=== PATIENT | female | born 1965 | race Caucasian/White ===

== ENCOUNTER → 2019-02-16 10:34 | Outpatient (CLI) | payer BC, SELFPAY ==
--- NOTE | 2019-02-16 10:39 | CA_ITS ---
PROCEDURE: 2-D M-mode and color Doppler study INDICATIONS FOR THE TEST: Chest pain COPD Heart Murmur Tobacco SmokingX Palpitations Fatigue Syncope Edema HypertensionXDiabetes Mellitus Rheumatic Fever SOB LI Obesity HyperlipidemiaX Family History HD Additional History PAD,CAD,PRE-OP COLONOSCOPY,ABN EKG PATIENT INFORMATION HEIGHT: 64 WEIGHT:164 GENDER: Female B/P:154/80 2-D/M-MODE INTERPRETATION: 2-D MEASUREMENTS OBSERVED VALUES IN CMS Right Ventricular Dimension (RVDd) 2.4 Interventricular Septum (Thickness)(IVsd) .7 Left Ventricular Internal Dimensions(LVIDd) 4.4 Left Ventricular Posterior Wall (Thickness)(LVPWd) .7 Aortic Root 2.5 Aortic Cusp Separation 1.8 Left Atrial Dimensions (LAD) 2.9 2D 1. Left atrium is normal size, left ventricle is normal size, there is no concentric left ventricular hypertrophy, visually estimated ejection fraction 55% with no regional wall motion abnormality. 2. The right atrium and right ventricle are normal size and contractility. 3. The aortic, mitral and tricuspid valve are grossly normal. 4. The pulmonic valve is poorly visualized. 5. No significant pericardial effusion noted. DOPPLER INTERROGATION: Doppler interrogation of the aortic, mitral and tricuspid valvular presence of mild mitral and tricuspid regurgitation, tricuspid regurgitation jet velocity is inadequate for calculation of the right ventricular systolic pressure, diastolic parameters are within normal range. CONCLUSION: 1. Normal left ventricular size, preserved left ventricular systolic function, visually estimated ejection fraction 55% with no regional wall motion abnormality, stomach parameters are within normal range. 2. Mild mitral and tricuspid regurgitation 3. No significant pericardial effusion noted.
== END ==
PROVIDERS: PCP Nurse Practitioner; Visit Provider Nurse Practitioner Family
DX: Z01.818 Encounter for other preprocedural examination (principal); I25.10 Atherosclerotic heart disease of native coronary artery without angina pectoris; R94.31 Abnormal electrocardiogram [ECG] [EKG]; E78.49 Other hyperlipidemia; I11.9 Hypertensive heart disease without heart failure; I73.9 Peripheral vascular disease, unspecified; Z72.0 Tobacco use
CPT/HCPCS: 93306

== ENCOUNTER → 2020-12-06 12:44 | Outpatient (CLI) | payer OTHER, SELFPAY ==
--- NOTE | 2020-12-06 12:45 | US_ITS ---
APPROVED REPORT Exam Type: Ankle to Brachial Index Creative Coordinator: RT Shaggy(R) Indications Claudication: Bilaterally Rest Pain: Bilaterally Risk Factors History of PAD: Hypertension Hyperlipidemia Current Smoker Patient states she has stents in her left leg. Pressures/Indices Right Indices Left Indices Brachial 112.00 mmHg Brachial 104.00 mmHg Low Thigh 102.00 mmHg 0.91 Low Thigh 86.00 mmHg 0.77 Calf 89.00 mmHg 0.79 Calf 84.00 mmHg 0.75 Ankle(PT) 95.00 mmHg 0.85 Ankle(PT) 85.00 mmHg 0.76 Ankle(DP) 86.00 mmHg 0.77 Ankle(DP) 70.00 mmHg 0.63 Digit 68.00 mmHg 0.61 Digit 63.00 mmHg 0.56 Findings RT MICHELET=0.85 LT TBI=0.76 RT TBI=0.61 LT TBI=0.56 Diminished pulses bilaterally Normal waveforms Conclusion RT MICHELET=0.85 LT TBI=0.76 RT TBI=0.61 LT TBI=0.56 Diminished pulses bilaterally Normal waveforms Mild bilateral arterial disease Electronically signed by : Luis Alfredo Ferrara MD 12/11/2020 17:25:19
== END ==
PROVIDERS: PCP Nurse Practitioner; Visit Provider Physician Assistant
DX: E78.5 Hyperlipidemia, unspecified (principal); I11.9 Hypertensive heart disease without heart failure; I25.10 Atherosclerotic heart disease of native coronary artery without angina pectoris; I70.213 Atherosclerosis of native arteries of extremities with intermittent claudication, bilateral legs; K22.0 Achalasia of cardia; R06.02 Shortness of breath; R94.31 Abnormal electrocardiogram [ECG] [EKG]; Z72.0 Tobacco use
CPT/HCPCS: 93923

== ENCOUNTER 2020-12-28 08:00 | Day surgery (SDC) | payer OTHER, SELFPAY ==
[2020-12-28] VITALS (12 sets, daily range): BP systolic 119–162; BP diastolic 74–87; PULSE 72–95; RESP 13–18; TEMP 36.8; O2SAT 96–100; BMI 23.1
--- NOTE | 2020-12-28 07:09 | IR_ITS ---
APPROVED REPORT Patient Location: Outpatient PROCEDURES Right femoral arterial access Catheter placed in the abdominal aorta Abdominal aortography Repositioning the catheter in the abdominal aorta Bilateral iliofemoral runoff INDICATION Abnormal MICHELET, [place] claudication class III, Known aortoiliac disease, Known peripheral artery disease Informed consent was obtained prior to the procedure. COMPLICATIONS None Estimated Blood Loss: Less than 10 mls TECHNIQUE 1% lidocaine used anesthetize right groin the right femoral artery is accessed via the Salinger technique and a 4 Portuguese sheath was placed in the right femoral artery. A pigtail catheter was placed in the abdominal aorta and abdominal aortography was performed. The catheter was then repositioned and bilateral iliofemoral off was performed. At the end of the procedure the apparatus was removed the patient was transferred to the postop holding area stable condition for sheath removal ANGIOGRAPHIC RESULTS The infrarenal abdominal aorta is mildly aneurysmal. The right common iliac artery has an ostial smooth 10 to 20% stenosis with the rest of the vessel widely patent. The right internal iliac artery is widely patent. The right external iliac artery has mild 10 to 20% atheromatous plaque. The right profunda femoris artery is normal. The right superficial femoral artery and right popliteal artery have mild atheromatous plaque with excellent three-vessel runoff below the knee The left common iliac artery has a stent in the ostial proximal segment which is widely patent with mild 30% concentric in-stent restenosis. Distally the stent transitions nicely into the common iliac artery. The left internal iliac arteries widely patent left external iliac artery is widely patent. The left common femoral artery is widely patent the left profunda femoris artery is widely patent. The left superficial femoral artery and left popliteal artery are widely patent. There is three-vessel runoff below the knee on the left side IMPRESSION Peripheral artery disease as described above with excellent bilateral three-vessel runoff Patent stent in left common iliac artery Infrarenal abdominal aortic aneurysm as described above PLAN 1. Medical management for PAD 2. Evaluation of nonvascular etiologies for leg pain 3. Continue risk factor modification 4. Follow standard of care protocol for AAA Electronically signed by : Oleksandr Pittman, 12/28/2020 11:17:18
[2020-12-28 09:31] LABS: Basophils # 0.1 K/mm3 (0-0.2); Basophils % 0.6 % (0.1-2.0); Eosinophils # 0.6 K/mm3 (0.0-0.4); Hematocrit 33.8 % (37.0-47.0); Hemoglobin 9.9 g/dL (12.2-16.2); Lymphocytes # 1.9 K/mm3 (0.7-4.5); Lymphocytes % 23.3 % (10-50); Mean Corpuscular HGB Conc 29.3 g/dL (31.8-35.4); Mean Corpuscular Hemoglobin 22.2 pg (27.0-31.2); Mean Corpuscular Volume 75.7 fl (81-99); Mean Platelet Volume 7.3 fl (7.4-10.4); Monocytes # 0.4 K/mm3 (0.1-1.0); Monocytes % 4.5 % (1.7-9.3); Neutrophils # 5.3 K/mm3 (1.8-7.8); Neutrophils % 64.5 % (37.0-80.0); Platelet Count 281 K/mm3 (142-424); Red Blood Count 4.46 M/mm3 (4.20-5.40); Red Cell Distribution Width 18.5 % (11.5-17.5); White Blood Count 8.2 K/mm3 (4.8-10.8)
[2020-12-28 09:33] LABS: Chloride 109 mmol/L (98-107); Potassium 4.3 mmoL/L (3.5-5.1); Sodium 141 mmol/L (136-145)
[2020-12-28 09:36] LABS: Blood Urea Nitrogen 8 mg/dl (7-17); Calcium 9.2 mg/dl (8.4-10.2); Carbon Dioxide 24 mmol/L (22.0-30.0); Creatinine Clearance Estimated 105 mL/min (50-200); Estimated Glomerular Filt Rate 105 ml/min (>60); GFR (African American) 127 ML/MIN (>60); Glucose 91 mg/dl (74-100)
== END 2020-12-28 14:07 | disposition home or self-care (01) ==
LOC: CATHLAB 08:02
PROVIDERS: PCP Nurse Practitioner; Visit Provider Internal Medicine
DX: I70.223 Atherosclerosis of native arteries of extremities with rest pain, bilateral legs; I11.9 Hypertensive heart disease without heart failure; E78.5 Hyperlipidemia, unspecified; I25.10 Atherosclerotic heart disease of native coronary artery without angina pectoris; F17.210 Nicotine dependence, cigarettes, uncomplicated; Z95.828 Presence of other vascular implants and grafts; Z79.899 Other long term (current) drug therapy
CPT/HCPCS: 36247; 75716; 80048; 85025; 99152; C1769; J1644; Q9966

== ENCOUNTER → 2021-02-06 08:02 | Outpatient (CLI) | payer OTHER, SELFPAY ==
[2021-02-06 08:05] LABS: Microscopic, Urine URINE MICROSCOPIC (MICROSCOPIC)
[2021-02-06 08:29] LABS: Basophils % 0.8 % (0.1-2.0); Eosinophils # 0.4 K/mm3 (0.0-0.4); Hematocrit 32.9 % (37.0-47.0); Hemoglobin 10.1 g/dL (12.2-16.2); Lymphocytes # 1.8 K/mm3 (0.7-4.5); Lymphocytes % 31.4 % (10-50); Mean Corpuscular HGB Conc 30.7 g/dL (31.8-35.4); Mean Corpuscular Hemoglobin 25.1 pg (27.0-31.2); Mean Corpuscular Volume 81.9 fl (81-99); Mean Platelet Volume 8.4 fl (7.4-10.4); Monocytes # 0.2 K/mm3 (0.1-1.0); Monocytes % 3.9 % (1.7-9.3); Neutrophils # 3.4 K/mm3 (1.8-7.8); Platelet Count 274 K/mm3 (142-424); Red Blood Count 4.02 M/mm3 (4.20-5.40); Red Cell Distribution Width 19.7 % (11.5-17.5); White Blood Count 5.8 K/mm3 (4.8-10.8)
[2021-02-06 08:30] LABS: Appearance,Urine CLEAR (Clear); Bilirubin,Urine Negative (Negative); Blood, Urine Negative (Negative); Color,Urine YELLOW (Yellow); Glucose,Urine (UA) Negative (Negative); Ketones,Urine Negative (Negative); Leukocyte Esterase,Urine 2+ (Negative); Nitrate,Urine Negative (Negative); PH,Urine 5.5 (5.0-8.5); Protein,Urine Negative (Negative); Specific Gravity, Urine <= 1.005 (1.005-1.030); Urobilinogen,Urine 0.2 EU/dl (0.2)
[2021-02-06 09:01] LABS: Anion Gap 14.2 mEq/L (5-15); Blood Urea Nitrogen 7 mg/dl (7-17); Calcium 9.1 mg/dl (8.4-10.2); Carbon Dioxide 25 mmol/L (22.0-30.0); Chloride 106 mmol/L (98-107); Estimated Glomerular Filt Rate 105 ml/min (>60); GFR (African American) 127 ML/MIN (>60); Glucose 90 mg/dl (74-100); Potassium 4.2 mmoL/L (3.5-5.1); Sodium 141 mmol/L (136-145)
== END ==
PROVIDERS: Visit Provider Nurse Practitioner Family
DX: I25.10 Atherosclerotic heart disease of native coronary artery without angina pectoris (principal); I11.9 Hypertensive heart disease without heart failure; I73.9 Peripheral vascular disease, unspecified; E78.5 Hyperlipidemia, unspecified; Z72.0 Tobacco use
CPT/HCPCS: 36415; 80048; 81001; 85025; 87086; 87088; 87186

== ENCOUNTER → 2021-02-12 10:41 | Outpatient (CLI) | payer OTHER, SELFPAY ==
--- NOTE | 2021-02-12 10:42 | US_ITS ---
PROCEDURE: US URINARY BLADDER CLINICAL INDICATION: hematuria COMPARISON: No exams were available for comparison FINDINGS: The urinary bladder appears unremarkable. Urinary bladder volume measures 121 mL. No focal bladder wall thickening is noted. Postvoid residual volume measures 2.9 mL. IMPRESSION: Unremarkable bladder ultrasound. Dictated by: Melany Laurent 02/12/2021 13:51 Melany Laurent in [facility] 02/12/2021 13:51
== END ==
PROVIDERS: PCP Nurse Practitioner; Visit Provider Nurse Practitioner Family
DX: R31.9 Hematuria, unspecified (principal)
CPT/HCPCS: 76857

== ENCOUNTER → 2021-07-03 07:51 | Outpatient (CLI) | payer OTHER, SELFPAY ==
--- NOTE | 2021-07-03 07:51 | US_ITS ---
PROCEDURE: US ABD. AORTA SCREENING CLINICAL INDICATION: screen COMPARISON: XA CL BOLUS RADHA AORTAGRAM BI from 12/28/2020 FINDINGS: There is mild dilatation at the lower abdominal aorta at 2.1 cm. Proximal aorta measures 1.5 cm and distal abdominal aorta measures 4 cm. Atheromatous changes are present involving the abdominal aorta. Proximal common iliacs are unremarkable. IMPRESSION: Mild dilatation of the lower abdominal aorta at 2 cm with atheromatous changes Dictated by: Luis Alfredo Ferrara MD 07/03/2021 17:28 Luis Alfredo Ferrara MD in [facility] 07/03/2021 17:28
== END ==
PROVIDERS: PCP Nurse Practitioner; Visit Provider Physician Assistant
DX: I25.10 Atherosclerotic heart disease of native coronary artery without angina pectoris (principal); I11.9 Hypertensive heart disease without heart failure; E78.5 Hyperlipidemia, unspecified; Z72.0 Tobacco use; I73.9 Peripheral vascular disease, unspecified
CPT/HCPCS: 76705

== ENCOUNTER → 2022-09-17 07:56 | Outpatient (CLI) | payer OTHER, SELFPAY ==
--- NOTE | 2022-09-17 | CA_ITS ---
APPROVED REPORT Exam: Pharmacologic Technologist: Kami Nuno, Ht: 5 ft 4 in Wt: 126 lbs BSA: 1.61 m2 HR: 78 bpm BP: 141/81 mmHg Medical History Medications: Aspirin,,,,, Diazepam,,,,, Vitamin D3,,,,, Metoprolol Tartrate,,,,, Flonase,,,,, Albuterol,,,,, Plavix,,,,, Prevacid,,,,, Venlafaxine,,,,, Trazodone,,,,, Xyzal,,,,, BuPROPION HCI,,,,, Stress Test Details Test: LEXISCAN Reason for pharmacologic stress test: physical limitation. HR Resting HR: 79 bpm Max Heart Rate (APMHR): 165.188658 bpm Max HR Achieved: 101 bpm Target HR (85% APMHR): 140.620864 bpm % of APMHR: 61.21 Recovery HR: 87 bpm BP Resting BP: 141/81 mmHg Max BP: 149/73 mmHg Recovery BP: 138.0/76.0 mmHg ECG Resting ECG: Junctional Escape @ 78 bpm Clinical Reason for Termination: Completed Protocol Exercise duration: 04:01 min Highest Stage Achieved: Stress ECG Conclusion Symptoms: None Arrhythmias/Ectopy: None ST-T Changes: <1.5mm ST Segment changes Conclusion: Non-Diagnostic Test Summary REST . . . . . . . Resting REST 08:06 . . 79 . 141/ 81 . . Stage 1 01:00 . . 98 . . . . Stage 2 01:00 . . 101 . 148/ 79 . . Stage 3 01:00 . . 95 . 149/ 73 . . Stage 4 01:00 . . 93 . 128/ 69 . . Stage 4 01:01 . . 93 . 128/ 69 . Stop exercise at 04:01 RECOVERY 01:00 . . 90 . . . . RECOVERY 01:45 . . 87 . 138/ 76 . . Electronically signed by : Johnny Bingham MD 09/17/2022 21:19:40
--- NOTE | 2022-09-17 08:04 | NM_ITS ---
APPROVED REPORT Exam: Nuclear Stress Test Indication: Chest pain, SOB, HTN, Tobacco use, Family history Patient Location: Outpatient Stress Tech: Kami Garcia AR Tech:Genesis Lux, ARRT, RT (R)(N) Ht: 5 ft 4 in Wt: 127 lbs Bra Size: 34B HR: 79 bpm BP: 141/81 mmHg BSA: 1.61 m2 TID: 1.01 BMI: 21.7 History: Chest pain, SOB, HTN, Tobacco use, Family history Procedure: Patient received 0.4 mg of intravenous Lexiscan, resting heart rate 79 bpm, resting blood pressure 141/81 mmHg, with Lexiscan maximum heart rate achieved was 101 bpm which is Less than 85 % of the maximum predicted heart rate and blood pressure was 149/73 mmHg. With Lexiscan, patient denied any complaint of chest pain. Electrocardiogram Resting electrocardiogram shows ectopic atrial rhythm, with Lexiscan there is less than 1.[address] segment depression noted from the baseline EKG. The EKG portion of the Lexiscan is nondiagnostic. Cardiac Stress and Resting SPECT Images: Cardiac Stress and Resting SPECT images were obtained using technetium 99m Myoview 32.5 mCi stress and 10.55 mCi at rest. Gated SPECT for analysis of segmental wall motion and calculation of the ejection fraction also done. Prone images were also obtained. Cardiac stress and resting SPECT images show uniform myocardial activity without segmental perfusion abnormality, computer derived ejection fraction is 53% with no regional wall motion abnormality, right ventricle is normal size and contractility. Conclusion: 1. The EKG portion of the Lexiscan is nondiagnostic. 2. No scintigraphic evidence of reversible ischemia seen, computer derived ejection fraction is 53% with no regional wall motion abnormality, right ventricle is normal size and contractility. 3. Normal Lexiscan Myoview study. Electronically signed by : Johnny Bingham MD 09/17/2022 21:22:29
--- NOTE | 2022-09-17 08:06 | CA_ITS ---
APPROVED REPORT EXAM: Comprehensive 2D, Doppler, and color-flow Echocardiogram Community Service Manager: Patsy Middleton CRT Ht: 5 ft 4 in Wt: 126lbs BSA: 1.61 BP: 125/87 mmHg Indications: Chest Pain, Shortness of Breath, CAD, Hyperlipidemia, PVD, PAD, Smoker 2D Dimensions LVOT 1.87 cm (M/F) 1.5-2.5 LA Volume 17.00 mL LA Volume Index 10.30 mL/m2 (M/F) 16-34 M-Mode Dimensions RVDd 2.23 cm (0.9-2.6) LA Diam 3.13 cm (1.9-4.0) LVDd 4.06 cm (3.5-5.7) Ao Diam 3.08 cm (2.0-3.7) LVDs 2.84 cm (3.5-5.7) IVSd 0.84 cm (0.6-1.1) PWd 0.44 cm (0.6-1.1) EF (Teich) 57.80% FS 30.00% EDV (Teich) 72.50 mL TAPSE 1.78 (<1.7) ESV (Teich) 30.60 mL LV Diastology E Decel Time 163.00 (160-240 msec) E/A Ratio 1.08 MED E' 7.60 (< 7 cm/sec) MED A' 12.20 cm/s E'/MED E' Ratio 9.20 (>14) LAT E' 10.20 (<10 cm/sec) LAT A' 7.80 cm/s E/LAT E' Ratio 6.85 (>14) Aortic Valve AO Peak GR. 7.30 mmHg Mitral Valve MV E Max Madhu. 70.00 (40-130 cm/s) MV A Velocity 65.00 (40-130 cm/s) E/A Ratio 1.08 MV Decel. Time 163.00 (160-240 ms) MV PHT 48.00 ms Tricuspid Valve TR P. Velocity 113.00 cm/s RAP Estimate 10.00 mmHg RVSP 15.10 mmHg Left Ventricle Left atrium is normal size left ventricle is normal size, there is no concentric left ventricular hypertrophy, estimated ejection fraction 55% with no regional wall motion abnormality, diastolic parameters are within normal range. Right Ventricle Right atrium and right ventricular normal size and contractility. Aortic Valve Aortic valve is minimally thickened and fibrosed there is no aortic stenosis or aortic insufficiency. Mitral Valve Mitral valve is grossly normal, there is trace mitral regurgitation. Tricuspid Valve Tricuspid valve grossly normal, there is trace tricuspid regurgitation, tricuspid regurgitation jet velocity is inadequate for calculation of the right ventricular systolic pressure. Pulmonic Valve Pulmonic valve is poorly visualized. Great Vessels Aortic root is normal size. Inferior vena cava is normal size with normal inspiratory collapse. Pericardium No significant pericardial effusion noted. Conclusion 1. Normal left ventricular size, estimated ejection fraction 55% with no regional wall motion abnormality, diastolic parameters are within normal range. 2. Trace mitral and tricuspid regurgitation. 3. No significant pericardial effusion noted. 4. Inferior vena cava is normal size with normal inspiratory collapse. Electronically signed by : Johnny Bingham MD 09/18/2022 05:48:36
--- NOTE | 2022-09-17 09:11 | HMH.ITSHM ---
Current Home Medications as stated by this patient Leticia Amaro or site safety representative. []VENLAFAXINE TRAZODONE NITRO METOPROLOL METOCLOPRAMIDE LEVOCETIRIZINE LANSOPRAZOLE FLUTICASONE IRON DIAZEPAM CLOPIDOGREL VITAMIN D3 BUPROPION ASA ALBUTEROL
== END ==
LOC: RAD 07:56
PROVIDERS: PCP Nurse Practitioner Family; Visit Provider Nurse Practitioner
DX: I20.8 Other forms of angina pectoris (principal); I35.0 Nonrheumatic aortic (valve) stenosis; R94.31 Abnormal electrocardiogram [ECG] [EKG]; R06.02 Shortness of breath
CPT/HCPCS: 78452; 93017; 93306; A9502; J2785

== ENCOUNTER 2024-03-31 13:51 | Outpatient (CLI) | payer BC, SELFPAY ==
--- NOTE | 2024-03-31 14:17 | US_ITS ---
FINAL REPORT CLINICAL HISTORY: AAA screening FINDINGS: Limited sonographic images of the abdominal aorta were obtained. There is ectasia of the abdominal aorta measuring up to 2.8 cm. The iliac arteries are intact. IMPRESSION: Ectasia of the abdominal aorta. Reviewed, Interpreted and Dictated by Fareed Palmer III, MD Transcribed by Eliza Huynh Authenticated and . [facility]
== END 2024-03-31 23:59 | disposition home or self-care (01) ==
LOC: RAD 13:52
PROVIDERS: PCP Student in an Organized Health Care Education/Training Program; Visit Provider Internal Medicine
DX: I10 Essential (primary) hypertension (principal); I25.10 Atherosclerotic heart disease of native coronary artery without angina pectoris; I11.9 Hypertensive heart disease without heart failure; I73.9 Peripheral vascular disease, unspecified; E78.2 Mixed hyperlipidemia; Z72.0 Tobacco use; R94.31 Abnormal electrocardiogram [ECG] [EKG]; I71.40 Abdominal aortic aneurysm, without rupture, unspecified
CPT/HCPCS: 76705

== ENCOUNTER 2024-04-14 07:46 | Day surgery (SDC) | payer BC, SELFPAY ==
[2024-04-14] VITALS (12 sets, daily range): BP systolic 104–166; BP diastolic 64–98; PULSE 72–98; RESP 18; O2SAT 97–100; BMI 19.2
--- NOTE | 2024-04-14 07:11 | IR_ITS ---
APPROVED REPORT Patient Location: Outpatient Loading Unit Operator Seating: DANIEL Canchola RT (R) PROCEDURES Left heart catheterization Left ventriculogram Selective coronary angiogram Drug-eluting stent deployment to the ostial proximal mid and distal dominant right coronary continuous manner Catheter placed in the abdominal aorta Abdominal aortography Repositioning of the catheter abdominal aorta Bilateral iliofemoral angiography INDICATION Known coronary artery disease, Worsening angina pectoris, Known peripheral artery disease, [place] claudication class III Informed consent was obtained prior to the procedure. COMPLICATIONS NONE Estimated Blood Loss: LESS THAN 10 ML TECHNIQUE One percent lidocaine used to anesthetize the right anterior aspect of the wrist. The right radial artery was accessed via the Seldinger technique. A 6 Hungarian sheath was placed in the right radial artery. 2.5 mg of Verapamil, 800 mcg of nitroglycerin, 1mg Lidocaine and 5000 U Heparin were given through the arterial sheath. The papa catheter was also used to perform left heart catheterization, left ventriculogram and selective coronary angiogram. At the end the diagnostic angiogram therapeutic heparin administered giving a therapeutic ACT and the guide catheter was placed in the right coronary followed by Choice PT extra-support wire placed distally. 2.75 x 38 mm Yogesh frontier stent was deployed at 20 dinorah reducing the stenosis. An additional 2.75 x 30 mm Derry frontier stent was placed proximal to the for stent yet still overlapping and deployed at 20 dinorah reducing the stenosis. An additional 3 mm x 22 mm Derry frontier stent was then deployed proximally overlapping the second placed stent and then deployed at 20 dinorah. A 3.5 x 12 mm Derry frontier stent was then placed in the ostium extending back into the right coronary cusp and deployed at 16 dinorah. The balloon was advanced into an area which required further dilatation and then deployed at 20 dinorah to post dilate. DIOR-3 flow was present before and after the procedure. Following this the guide catheter was placed in the transverse aorta and a wire was advanced to the descending aorta. The PV multi curve was then placed into the distal abdominal aorta for distal abdominal aortography was performed. Following this the catheter was pulled back to the suprarenal level and angiography was performed. At the end the procedure the apparatus was removed the sheath was removed and hemostasis was achieved using TR banding patient was transferred to the postop putting in stable condition ANGIOGRAPHIC RESULTS The left main artery Normal The left anterior descending artery Has proximal 10% stenosis with mild mid vessel 10% luminal regularities The circumflex artery Nondominant yet still large with diffuse 10% luminal regularities. The vessel gives rise to large ramus intermedius which has 10% luminal regularities The right coronary artery Large dominant with proximal 60% mid vessel 60% and distal 70% stenosis. The proximal portion of the posterior sending artery has a hazy 50% stenosis The FRANCOIS ventriculogram reveals Not performed The left ventricular end-diastolic pressure Not measured Left renal artery singular and has a proximal 80% stenosis Right renal artery singular and normal Infrarenal abdominal aorta appears ectatic possibly aneurysmal. Right common iliac artery has an ostial 50% stenosis. The left common iliac artery has a stent in the ostial segment which is patent with an eccentric 60% stenosis. The bilateral internal and external iliac arteries are patent. The bilateral common femoral arteries are patent IMPRESSION Severe disease throughout the right coronary as described above Successful reconstruction of the ostial proximal mid distal dominant right coronary severe disease reduced to 0% with 4 contiguous drug-eluting stents Severe bilateral common iliac stenoses Vascular ectasia versus aneurysmal dilatation of the infrarenal abdominal aorta Severe left renal artery stenosis PLAN 1. Dual antiplatelet therapy 2. Less than 55 to be achieved with high intensity statin 3. Avoidance of tobacco products 4. Recommend abdominal aortic ultrasound to determine if an aneurysm is present and if so the size. 5. Patient be brought back to [facility] in 2 weeks and undergo stenting of the left renal artery 6. If no aneurysm is present patient can be brought back to the [facility] in 2 weeks and also undergo bilateral aortic bifurcation reconstruction with stenting of the bilateral common iliac arteries extending into the abdominal aorta Electronically signed by : Oleksandr Pittman MD 04/14/2024 12:17:12
[2024-04-14 08:19] LABS: Basophils # 0.1 K/mm3 (0-0.2); Eosinophils # 0.5 K/mm3 (0.0-0.4); Eosinophils % 6.9 % (0.1-12.0); Hematocrit 42.3 % (37.0-47.0); Hemoglobin 12.8 g/dL (12.2-16.2); Lymphocytes # 2.9 K/mm3 (0.7-4.5); Lymphocytes % 37.9 % (10-50); Mean Corpuscular HGB Conc 30.2 g/dL (31.8-35.4); Mean Corpuscular Hemoglobin 28.7 pg (27.0-31.2); Mean Corpuscular Volume 94.8 fl (81-99); Mean Platelet Volume 8.2 fl (7.4-10.4); Monocytes # 0.4 K/mm3 (0.1-1.0); Monocytes % 5.2 % (1.7-9.3); Neutrophils # 3.7 K/mm3 (1.8-7.8); Neutrophils % 49.1 % (37.0-80.0); Platelet Count 200 K/mm3 (142-424); Red Blood Count 4.47 M/mm3 (4.20-5.40); Red Cell Distribution Width 15.7 % (11.5-17.5); White Blood Count 7.5 K/mm3 (4.8-10.8)
[2024-04-14 08:31] LABS: Anion Gap 7.5 mEq/L (5-15); Blood Urea Nitrogen 18 mg/dl (7-17); Calcium 9.3 mg/dl (8.4-10.2); Carbon Dioxide 22 mmol/L (22.0-30.0); Chloride 113 mmol/L (98-107); Creatinine Clearance Estimated 56 mL/min (50-200); Estimated Glomerular Filt Rate 65 ml/min (>60); GFR (African American) 78 ML/MIN (>60); Glucose 74 mg/dl (74-100); Potassium 4.5 mmoL/L (3.5-5.1); Sodium 138 mmol/L (136-145)
[2024-04-14] MEDS: VERAPAMIL 2.5MG/ML 2ML VIAL 2.5 MG IV (10:27)
[2024-04-14] MEDS: LIDOCAINE 1% 10ML MDV 20 ML IJ (10:27)
[2024-04-14] MEDS: diphenhydrAMINE 50MG/ML VIAL 50 MG IV (10:27)
[2024-04-14] MEDS: 0.9 % SODIUM CHLORIDE 500 ML 25 ML IV (10:28)
[2024-04-14] MEDS: HEPARIN 1,000 UNITS/500ML NS (CATH LAB) 3000 UNIT IV (10:28)
[2024-04-14] MEDS: NITROGLYCERIN 800MCG/8ML SYR (CATH LAB) 800 MCG IA (10:29)
[2024-04-14] MEDS: MIDAZOLAM HCL 1MG/1ML 5ML VIAL 1 MG IV (10:51)
[2024-04-14] MEDS: FENTANYL 100MCG/2ML VIAL 50 MCG IV (10:52)
[2024-04-14] MEDS: HEPARIN 1,000 UNITS/ML 10ML VIAL (CATH LAB) 10000 UNIT IV (11:11)
[2024-04-14] MEDS: LABETALOL 20MG/4ML SYRINGE 20 MG IV (11:19)
[2024-04-14] MEDS: PROMETHAZINE HCL 25MG/ML 1ML VIAL 25 MG IV (11:24)
--- NOTE | 2024-04-14 11:49 | SUR.PHASEII ---
Called [facility] for referal, stated to fax all information to them and they will call the patient with a appointment.
--- NOTE | 2024-04-14 12:00 | SUR.PHASEII ---
MD stated that pt does not need vascular surgery d/t abdominal US, cancel referral, and schedule pt for renal stent and iliac stents, notified patient utilization for precert and scheduling.
[2024-04-14] MEDS: IOPAMIDOL-250 (51%) 100ML BOT 40 ML IV (14:44)
[2024-04-14] MEDS: IOPAMIDOL-370 (76%);100ML BOTTLE 90 ML IV (14:44)
[2024-04-14 14:54] LABS: CATHL Activated Clotting Time 234 SEC (74-125)
== END 2024-04-14 14:30 | disposition home or self-care (01) ==
PROVIDERS: PCP Student in an Organized Health Care Education/Training Program; Visit Provider Internal Medicine
DX: I70.223 Atherosclerosis of native arteries of extremities with rest pain, bilateral legs (principal); I11.9 Hypertensive heart disease without heart failure; I77.1 Stricture of artery; I25.118 Atherosclerotic heart disease of native coronary artery with other forms of angina pectoris; I71.40 Abdominal aortic aneurysm, without rupture, unspecified; I70.1 Atherosclerosis of renal artery; F17.210 Nicotine dependence, cigarettes, uncomplicated; R94.31 Abnormal electrocardiogram [ECG] [EKG]; Z79.899 Other long term (current) drug therapy; R29.6 Repeated falls; Z95.828 Presence of other vascular implants and grafts
CPT/HCPCS: 36247; 75716; 80048; 85025; 85347; 92928; 93454; 99152; 99153; C1725; C1769; C1874; C9600; J1200; J1644; J2250; J2550; J3010; Q9966; Q9967

== ENCOUNTER 2024-04-16 09:23 | Outpatient (CLI) | payer BC, SELFPAY ==
[2024-04-16 10:06] LABS: Basophils # 0.1 K/mm3 (0-0.2); Basophils % 0.6 % (0.1-2.0); Eosinophils # 0.5 K/mm3 (0.0-0.4); Eosinophils % 5.3 % (0.1-12.0); Hematocrit 43.3 % (37.0-47.0); Hemoglobin 12.8 g/dL (12.2-16.2); Lymphocytes # 2.3 K/mm3 (0.7-4.5); Lymphocytes % 26.7 % (10-50); Mean Corpuscular HGB Conc 29.7 g/dL (31.8-35.4); Mean Corpuscular Hemoglobin 28.6 pg (27.0-31.2); Mean Corpuscular Volume 96.3 fl (81-99); Mean Platelet Volume 8.3 fl (7.4-10.4); Monocytes # 0.4 K/mm3 (0.1-1.0); Monocytes % 4.9 % (1.7-9.3); Neutrophils # 5.3 K/mm3 (1.8-7.8); Neutrophils % 62.5 % (37.0-80.0); Platelet Count 216 K/mm3 (142-424); Red Blood Count 4.49 M/mm3 (4.20-5.40); Red Cell Distribution Width 15.6 % (11.5-17.5); White Blood Count 8.5 K/mm3 (4.8-10.8)
[2024-04-16 10:29] LABS: Alanine Aminotransferase 43 U/L (12-78); Albumin Level 3.9 g/dl (3.5-5.0); Alkaline Phosphatase 90 U/L (38-126); Anion Gap 10.5 mEq/L (5-15); Aspartate Amino Transferase 52 U/L (14-36); Bilirubin,Direct 0.2 mg/dl (0.0-0.4); Bilirubin,Indirect 0.5 mg/dL (0.0-0.9); Bilirubin,Total 0.7 mg/dl (0.2-1.3); Bilirubin,Unconjugated 0.6 mg/dL (0.0-1.1); Blood Urea Nitrogen 11 mg/dl (7-17); Calcium 9.6 mg/dl (8.4-10.2); Carbon Dioxide 21 mmol/L (22.0-30.0); Chloride 109 mmol/L (98-107); Chol/HDL Ratio 2.4 (1-3.5); Cholesterol 143 mg/dl (140-200); Estimated Glomerular Filt Rate 74 ml/min (>60); GFR (African American) 90 ML/MIN (>60); Glucose 125 mg/dl (74-100); HDL Cholesterol 60 mg/dl (40-60); Magnesium 1.9 mg/dl (1.6-2.3); Potassium 4.5 mmoL/L (3.5-5.1); Sodium 136 mmol/L (136-145); Total Protein,Serum 6.6 g/dl (6.3-8.2); Triglycerides 83 mg/dl (30-150); VLDL Cholesterol 17 mg/dL (0-40)
[2024-04-16 10:40] LABS: Direct LDL Cholesterol 64.23 mg/dL (100-129)
[2024-04-16 10:45] LABS: Free T4 (Free Thyroxine) 1.04 ng/dl (0.78-2.19)
[2024-04-16 10:59] LABS: Thyroid Stimulating Hormone 0.44 uIU/mL (0.465-4.68)
== END 2024-04-16 23:59 | disposition home or self-care (01) ==
LOC: LAB 09:24
PROVIDERS: Internal Medicine; PCP Student in an Organized Health Care Education/Training Program; Visit Provider Internal Medicine
DX: I73.9 Peripheral vascular disease, unspecified (principal); I71.40 Abdominal aortic aneurysm, without rupture, unspecified; I11.9 Hypertensive heart disease without heart failure; I25.10 Atherosclerotic heart disease of native coronary artery without angina pectoris; R94.31 Abnormal electrocardiogram [ECG] [EKG]; Z72.0 Tobacco use; E78.2 Mixed hyperlipidemia; R06.00 Dyspnea, unspecified
CPT/HCPCS: 36415; 80048; 80061; 80076; 83735; 84439; 84443; 85025

== ENCOUNTER 2024-04-28 08:43 | Outpatient (RCR) | payer BC, SELFPAY | END 2024-04-28 23:59 | disposition home or self-care (01) | LOC: PT 08:43 | PROVIDERS: Visit Provider Internal Medicine | DX: Z95.5 Presence of coronary angioplasty implant and graft (principal) ==

== ENCOUNTER 2024-05-07 11:57 | Observation (INO) | payer BC, SELFPAY ==
[2024-05-07] VITALS (35 sets, daily range): BP systolic 87–153; BP diastolic 54–87; PULSE 79–100; RESP 14–20; TEMP 36.5–36.8; O2SAT 94–100; BMI 18.6
--- NOTE | 2024-05-07 | IR_ITS ---
APPROVED REPORT Patient Location: Outpatient Casing Tester: DANIEL Soria RT (R) PROCEDURES Right retrograde femoral angiogram Left retrograde femoral angiogram Intravascular lithotripsy to the right common iliac artery Intravascular lithotripsy to the left common iliac artery Bare-metal stent deployment to the right common iliac artery Bare-metal stent deployment to the left common iliac artery Bare-metal stent deployment to the left renal artery Left renal artery selective angiogram INDICATION Renal artery stenosis, Renovascular hypertension, Bilateral common iliac artery stenosis Informed consent was obtained prior to the procedure. COMPLICATIONS none Estimated Blood Loss: less than 10ml TECHNIQUE 1% lidocaine used anesthetize the bilateral groins the bilateral femoral arteries were accessed via the Salinger technique and 6 Fijian sheath was placed in the right femoral artery and left femoral arteries. Retrograde angiography was performed bilaterally. Therapeutic heparin was then administered and a 7 mm x 60 mm intravascular lithotripsy shockwave balloon was deployed in the distal abdominal aorta extending to the right common iliac artery for total of 300 pulsations. And new 7 mm x 60 mm shockwave balloon was repeated on the left common iliac artery for a total of 300 pulsations. Following this to 8 mm x 37 mm EV 3 stents were deployed at 12 and then 16 dinorah in the bilateral common iliac arteries reducing the stenosis to 0%. A short CAMACHO guide catheter was used to intubate the left renal artery and left renal angiography was performed. The BMW wire was placed distally and a 5 mm x 15 mm Herculink stent was deployed at 15 dinorah reducing the stenosis to 0% excellent angiograph results were obtained. At the end the procedure the apparatus was removed the patient was transferred to the postop putting in stable condition for sheath removal IMPRESSION Successful intravascular lithotripsy to the bilateral right and left common iliac arteries Successful bare-metal balloon mounted stent deployment to the bilateral common iliac arteries Successful stenting to the left renal artery severe disease reduced to 0% with 1 bare-metal balloon mounted stent PLAN 1. Monitor patient overnight given the bilateral femoral artery sheath and renal artery stenosis stenting 2. Continue dual antiplatelet therapy 3. Risk factor modification 4. Avoidance of tobacco products Electronically signed by : Oleksandr Pittman MD 05/07/2024 13:12:28
[2024-05-07 09:08] LABS: Basophils # 0.1 K/mm3 (0-0.2); Basophils % 1.2 % (0.1-2.0); Eosinophils # 0.4 K/mm3 (0.0-0.4); Eosinophils % 5.4 % (0.1-12.0); Hematocrit 41.1 % (37.0-47.0); Hemoglobin 13.1 g/dL (12.2-16.2); Lymphocytes # 2.5 K/mm3 (0.7-4.5); Lymphocytes % 32.7 % (10-50); Mean Corpuscular HGB Conc 31.8 g/dL (31.8-35.4); Mean Corpuscular Hemoglobin 28.5 pg (27.0-31.2); Mean Corpuscular Volume 89.6 fl (81-99); Mean Platelet Volume 8.7 fl (7.4-10.4); Monocytes # 0.3 K/mm3 (0.1-1.0); Monocytes % 4.5 % (1.7-9.3); Neutrophils # 4.3 K/mm3 (1.8-7.8); Neutrophils % 56.2 % (37.0-80.0); Platelet Count 194 K/mm3 (142-424); Red Blood Count 4.58 M/mm3 (4.20-5.40); Red Cell Distribution Width 15.1 % (11.5-17.5); White Blood Count 7.7 K/mm3 (4.8-10.8)
[2024-05-07 09:10] LABS: Chloride 111 mmol/L (98-107)
[2024-05-07 09:11] LABS: Potassium 3.9 mmoL/L (3.5-5.1); Sodium 139 mmol/L (136-145)
[2024-05-07 09:13] LABS: Blood Urea Nitrogen 13 mg/dl (7-17); Creatinine Clearance Estimated 57 mL/min (50-200); Estimated Glomerular Filt Rate 65 ml/min (>60); GFR (African American) 78 ML/MIN (>60)
[2024-05-07 09:14] LABS: Anion Gap 12.9 mEq/L (5-15); Calcium 10.2 mg/dl (8.4-10.2); Carbon Dioxide 19 mmol/L (22.0-30.0); Glucose 83 mg/dl (74-100)
[2024-05-07] MEDS: LIDOCAINE 1% 10ML MDV 20 ML IJ (10:41)
[2024-05-07] MEDS: FENTANYL 100MCG/2ML VIAL 50 MCG IV (10:44)
[2024-05-07] MEDS: MIDAZOLAM HCL 1MG/1ML 5ML VIAL 1 MG IV (10:44)
[2024-05-07] MEDS: HEPARIN 1,000 UNITS/500ML NS (CATH LAB) 3000 UNIT IV (10:45)
[2024-05-07] MEDS: HEPARIN 1,000 UNITS/ML 10ML VIAL (CATH LAB) 10000 UNIT IV (11:07)
[2024-05-07] MEDS: diphenhydrAMINE 50MG/ML VIAL 50 MG IV (11:07)
[2024-05-07] MEDS: PROTAMINE SULFATE 50MG/5ML VIAL (CATH LAB) 50 MG IV (11:44)
--- NOTE | 2024-05-07 12:04 | HMH.PHAINT1 ---
Pharmacy Intervention Comments: MEDICATION RECONCILIATION COMPLETED ON PATIENT USING EXTERNAL FILL HISTORY FROM PHARMACY. -ADARSH GARSIA, JODYD
--- NOTE | 2024-05-07 12:44 | P.HP_ITS ---
History of Present Illness *Admission Date: 05/07/24 *Reason for visit:: renal artery stenosis and PAD *History of present illness: Ms. Oro is a 58-year-old female with history of CAD, hypertension, PAD, claudication, hyperlipidemia. Due to worsening claudication at rest, cardiology recommended evaluation of her lower extremities. She presented to the Complaint Evaluation Supervisor for elective evaluation of renal arteries and claudication of her lower extremities. Was found to have significant stenosis of the left renal artery and received stenting of bilateral common iliac arteries along with stenting of left renal artery. Due to extent of procedure, contrast load, risk for bleeding, patient admitted for monitoring overnight. On arrival to the floor, patient is laying supine. Hemodynamically stable. Denies any shortness of breath or chest pain. No nausea or vomiting. Denies significant pain at bilateral insertion sites. Procedure today as follows: CL bolus shireen aortogram/bilateral lower extremities-Resting claudication/PAD Left renal angiogram with left renal artery stenting. [facility] Disclaimer: The information contained in this section may have been updated after the patient was seen, as this information can be updated by other users. Medical History Abdominal aortic aneurysm (AAA) HTN (hypertension) Claudication Pre-op evaluation Hernia, hiatal HHD (hypertensive heart disease) Family History No significant family history Social History Smoking Status: Current every day smoker tobacco type: cigarettes packs per day: 1 second hand exposure: Yes alcohol intake: never substance use type: denies use current occupational status: employed Travel in the last 8 weeks: [facility] housing: house current occupational exposures/hazards: No caffeine: No Other Medical History Have you received the Flu Vaccine for this season: Yes Have you received the Pneumonia Vaccine: Yes Review of Systems Review of Systems Review of systems (narrative): 14 point review of systems performed, pertinent positives and negatives as per HPI Meds Home Medications and Allergies Home Medications ?Medication ?Instructions ?Recorded ?Confirmed ?Type albuterol sulfate 90 mcg/actuation 2 puff inhalation Q4HP PRN 10/03/17 05/07/24 History aerosol inhaler (ProAir HFA) Shortness Of Breath aspirin 81 mg tablet,delayed 81 mg PO DAILY #30 tabs 10/27/17 05/07/24 Rx release clopidogrel 75 mg tablet (Plavix) 75 mg PO DAILY #30 tabs 10/27/17 05/07/24 Rx levocetirizine 5 mg tablet (Xyzal) 5 mg PO DAILY 11/28/20 05/07/24 History ferrous sulfate 325 mg (65 mg 325 mg PO DAILY 07/16/21 05/07/24 History iron) tablet (Feosol) fluticasone propionate 50 2 spray intranasal DAILY 07/16/21 05/07/24 History mcg/actuation nasal spray,suspension metoprolol tartrate 25 mg tablet 37.5 mg PO BID 07/16/21 05/07/24 History valsartan 160 mg tablet 160 mg PO DAILY #90 tabs 02/24/23 05/07/24 Rx ergocalciferol (vitamin D2) 1,250 1,250 mcg PO WEEKLY 04/28/24 05/07/24 History mcg (50,000 unit) capsule folic acid 1 mg tablet 1 mg PO DAILY 04/28/24 05/07/24 History venlafaxine 150 mg 150 mg PO DAILY 04/28/24 05/07/24 History capsule,extended release 24 hr buspirone 5 mg tablet 5 mg PO BID 05/07/24 05/07/24 History lansoprazole 30 mg capsule,delayed 30 mg PO DAILY 05/07/24 05/07/24 History release nicotine 21 mg/24 hr daily 21 mg transdermal DAILY 05/07/24 05/07/24 History transdermal patch New Prescriptions to Start Prescriptions: Allergies Allergy/AdvReac Type Severity Reaction Status Date / Time rivaroxaban [From Xarelto] AdvReac Mild bleeding Verified 05/07/24 09:09 with urination Exam Data for Last 24 hours Vital signs and Labs for Last 24 Hours: Temp Pulse Resp BP Pulse Ox O2 Del Method 98.0 F 86 20 114/69 100 Room Air 05/07/24 11:45 05/07/24 12:05 05/07/24 12:05 05/07/24 12:05 05/07/24 12:05 05/07/24 12:00 Laboratory Results - last 24 hr 05/07/24 09:00: WBC 7.7, RBC 4.58, Hgb 13.1, Hct 41.1, MCV 89.6, MCH 28.5, MCHC 31.8, RDW 15.1, Plt Count 194, MPV 8.7, Neut % (Auto) 56.2, Lymph % (Auto) 32.7, [place] % (Auto) 4.5, Eos % (Auto) 5.4, Baso % (Auto) 1.2, Neut # (Auto) 4.3, Lymph # (Auto) 2.5, [place] # (Auto) 0.3, Eos # (Auto) 0.4, Baso # (Auto) 0.1, Sodium 139, Potassium 3.9, Chloride 111 H, Carbon Dioxide 19 L, Anion Gap 12.9, BUN 13, Creatinine 0.90, Estimated Creat Clear 57, Estimated GFR 65, Est GFR ( Amer) 78, Glucose 83, Calcium 10.2 I & O for Last 24 hours: Intake & Output 05/04/24 05/05/24 05/06/24 05/07/24 23:59 23:59 23:59 23:59 Weight 52.163 kg Constitutional Constitutional: no acute distress, thin, chronically ill appearing and cooperative *Routine HEENT Exam Head: Present normocephalic Eye: Present EOMI and PERRL ENT: Present mucous membranes moist *Routine Neck Exam Neck: Present supple; Absent lymphadenopathy *Routine Respiratory Exam Respiratory: Present CTA bilaterally; Absent rhonchi, wheezes or crackles *Routine Cardiovascular Exam Cardiovascular: Present RRR *Routine Abdominal Exam Abdominal: Present soft and normoactive bowel sounds; Absent tenderness *Routine Rectal Exam Rectal:: deferred *Routine Genitalia Exam Genitalia:: deferred *Routine Extremities Exam Extremities: Absent cyanosis, clubbing or edema Comments: bilateral femoral access points CDI, no hematomas *Routine Skin Exam Skin: Present intact and warm; Absent rash *Routine Neurological Exam Neurological: Present alert, oriented X3 and moving all extremities; Absent altered mental status Assessment and Plan *Assessment and plan (1) PAD (peripheral artery disease): Status: Chronic Category: Medical Code(s): I73.9 - Peripheral vascular disease, unspecified (2) Claudication: Status: Acute Category: Medical Code(s): I73.9 - Peripheral vascular disease, unspecified (3) Renal artery stenosis: Status: Acute Category: Medical Code(s): I70.1 - Atherosclerosis of renal artery (4) Abdominal aortic aneurysm (AAA): Status: Acute Category: Medical Code(s): I71.40 - Abdominal aortic aneurysm, without rupture, unspecified (5) HTN (hypertension): Status: Acute Qualifiers: Hypertension type: primary hypertension Qualified Code(s): I10 - Essential (primary) hypertension Category: Medical Code(s): I10 - Essential (primary) hypertension (6) HHD (hypertensive heart disease): Status: Chronic Qualifiers: Heart failure presence: without heart failure Qualified Code(s): I11.9 - Hypertensive heart disease without heart failure Category: Medical Code(s): I11.9 - Hypertensive heart disease without heart failure (7) CAD (coronary artery disease): Status: Chronic Qualifiers: Associated angina: without angina Coronary Disease-Associated Artery/Lesion type: [place] artery [place] vs. transplanted heart: [place] heart Qualified Code(s): I25.10 - Atherosclerotic heart disease of [place] coronary artery without angina pectoris Category: Medical Code(s): I25.10 - Atherosclerotic heart disease of [place] coronary artery without angina pectoris (8) Tobacco abuse: Status: Chronic Category: Medical Code(s): Z72.0 - Tobacco use (9) HLD (hyperlipidemia): Status: Chronic Qualifiers: Hyperlipidemia type: mixed hyperlipidemia Qualified Code(s): E78.2 - Mixed hyperlipidemia Category: Medical Code(s): E78.5 - Hyperlipidemia, unspecified Plan 58-year-old female status post angiogram of lower extremities and renal arteries. Received stent to left renal artery and bilateral common iliacs. Discussed case with cardiology, request admission for monitoring overnight. I agreed to admit for further management. Hemodynamically stable. Laying supine. Problems addressed as follows: Renal artery stenosis Lower extremity claudication Peripheral artery disease HTN - Status post aortogram with bilateral lower extremities along with left renal angiogram and stenting of left renal artery. Successful intravascular lithotripsy of bilateral right and left common iliacs. Bare-metal balloon stent deployed to the bilateral common iliac arteries. -Continue aspirin 81 mg daily and Plavix 75mg daily. -Continue metoprolol tartrate 37.5 mg twice daily, valsartan 160 mg daily for hypertension Mood disorder: Continue venlafaxine 150 mg extended release daily and BuSpar 5 mg twice daily GERD: Continue PPI with formulary conversion Tobacco use disorder: Nicotine patch 21 mg daily BMP and CBC ordered for the morning. Anticipate discharge tomorrow Full code Heparinized in cath Cardiac diet
[2024-05-07] MEDS: IOPAMIDOL-250 (51%) 100ML BOT 90 ML IV (13:37)
[2024-05-07 14:17] LABS: CATHL Activated Clotting Time 310 SEC (74-125)
[2024-05-07] MEDS: NICOTINE 21MG/24HR PATCH 21 MG TD (16:07)
[2024-05-07] MEDS: BUSPIRONE HCL 5 MG TABLET PO (21:00)
[2024-05-07] MEDS: PANTOPRAZOLE 40MG TABLET 40 MG PO (21:00)
[2024-05-07] MEDS: METOPROLOL TARTRATE 25MG TABLET 37.5 MG PO (21:01)
[2024-05-08] VITALS: BP 81/57; PULSE 85; RESP 16; TEMP 36.9; O2SAT 97
[2024-05-08 04:00] VITALS: BP 85/57; PULSE 85; RESP 16; TEMP 36.9; O2SAT 96; BMI 19.1
--- NOTE | 2024-05-08 04:07 | PC.NURSE ---
58 YO female pt is A/O X 4. Pt has denied pain, discomfort or SOA this shift. She tolerated regular diet. Pt was able to sit and stand, then ambulate to BR without difficulty or complaint. Surgical sites to bilateral groin has remained C/D/I throughout shift. She has seemed to rest well
[2024-05-08 06:51] LABS: Basophils % 0.6 % (0.1-2.0); Eosinophils # 0.4 K/mm3 (0.0-0.4); Eosinophils % 5.1 % (0.1-12.0); Hematocrit 39.2 % (37.0-47.0); Hemoglobin 12.6 g/dL (12.2-16.2); Lymphocytes % 25.6 % (10-50); Mean Corpuscular HGB Conc 32.3 g/dL (31.8-35.4); Mean Corpuscular Hemoglobin 28.7 pg (27.0-31.2); Mean Corpuscular Volume 88.9 fl (81-99); Mean Platelet Volume 8.9 fl (7.4-10.4); Monocytes # 0.4 K/mm3 (0.1-1.0); Monocytes % 5.4 % (1.7-9.3); Neutrophils % 63.4 % (37.0-80.0); Platelet Count 186 K/mm3 (142-424); Red Blood Count 4.41 M/mm3 (4.20-5.40); Red Cell Distribution Width 15.4 % (11.5-17.5); White Blood Count 7.9 K/mm3 (4.8-10.8)
[2024-05-08 06:57] LABS: Chloride 110 mmol/L (98-107); Sodium 138 mmol/L (136-145)
[2024-05-08 07:00] LABS: Blood Urea Nitrogen 14 mg/dl (7-17); Creatinine Clearance Estimated 67 mL/min (50-200); Estimated Glomerular Filt Rate 74 ml/min (>60); GFR (African American) 90 ML/MIN (>60)
[2024-05-08 07:01] LABS: Carbon Dioxide 21 mmol/L (22.0-30.0); Glucose 96 mg/dl (74-100)
--- NOTE | 2024-05-08 07:01 | EXP.DC.SUM ---
General Admission date:: 05/07/24 Discharge date: 05/08/24 HPI HPI HPI: Ms. Amaro is a 58-year-old female with history of CAD, hypertension, PAD, claudication, hyperlipidemia. Due to worsening claudication at rest, cardiology recommended evaluation of her lower extremities. She presented to the Clinical Sociologist for elective evaluation of renal arteries and claudication of her lower extremities. Was found to have significant stenosis of the left renal artery and received stenting of bilateral common iliac arteries along with stenting of left renal artery. Due to extent of procedure, contrast load, risk for bleeding, patient admitted for monitoring overnight. On arrival to the floor, patient is laying supine. Hemodynamically stable. Denies any shortness of breath or chest pain. No nausea or vomiting. Denies significant pain at bilateral insertion sites. Procedure today as follows: CL bolus shireen aortogram/bilateral lower extremities-Resting claudication/PAD Left renal angiogram with left renal artery stenting. Hospital Course Hospital Course Hospital Course: 58-year-old female status post angiogram of lower extremities and renal arteries. Received stent to left renal artery and bilateral common iliacs. Discussed case with cardiology, request admission for monitoring overnight. I agreed to admit for further management. Hemodynamically stable. Laying supine on initial evaluation. Patient able to transition to being upright over first night of admission. Doing well with no significant pain at insertion sites in bilateral groins. Stable to discharge home. Problems addressed as follows: Renal artery stenosis Lower extremity claudication Peripheral artery disease HTN - Status post aortogram with bilateral lower extremities along with left renal angiogram and stenting of left renal artery. Successful intravascular lithotripsy of bilateral right and left common iliacs. Bare-metal balloon stent deployed to the bilateral common iliac arteries. Continue aspirin 81 mg daily and Plavix 75mg daily. Metoprolol decreased to 12.5 mg twice daily given soft blood pressure after stenting of renal artery. Will hold valsartan 160 mg daily for hypertension due to blood pressure. Reevaluate need at follow-up. Counseled to resume medication if systolics elevate above 140. Otherwise hold on this medication until follow-up with cardiology. Mood disorder: Continue venlafaxine 150 mg extended release daily and BuSpar 5 mg twice daily GERD: Continue omeprazole Tobacco use disorder: Nicotine patch 21 mg daily Exam Data for Last 24 hours Vital signs and Labs for Last 24 Hours: Temp Pulse Resp BP Pulse Ox O2 Del Method O2 Flow Rate 98.5 F 85 16 85/57 L 96 Room Air 2 05/08/24 04:00 05/08/24 04:00 05/08/24 04:00 05/08/24 04:00 05/08/24 04:00 05/08/24 06:45 05/07/24 15:00 Laboratory Results - last 24 hr 05/07/24 09:00: WBC 7.7, RBC 4.58, Hgb 13.1, Hct 41.1, MCV 89.6, MCH 28.5, MCHC 31.8, RDW 15.1, Plt Count 194, MPV 8.7, Neut % (Auto) 56.2, Lymph % (Auto) 32.7, [place] % (Auto) 4.5, Eos % (Auto) 5.4, Baso % (Auto) 1.2, Neut # (Auto) 4.3, Lymph # (Auto) 2.5, [place] # (Auto) 0.3, Eos # (Auto) 0.4, Baso # (Auto) 0.1, Sodium 139, Potassium 3.9, Chloride 111 H, Carbon Dioxide 19 L, Anion Gap 12.9, BUN 13, Creatinine 0.90, Estimated Creat Clear 57, Estimated GFR 65, Est GFR ( Amer) 78, Glucose 83, Calcium 10.2 05/07/24 11:19: Activated Clotting Time 310 H* 05/08/24 06:33: WBC 7.9, RBC 4.41, Hgb 12.6, Hct 39.2, MCV 88.9, MCH 28.7, MCHC 32.3, RDW 15.4, Plt Count 186, MPV 8.9, Neut % (Auto) 63.4, Lymph % (Auto) 25.6, [place] % (Auto) 5.4, Eos % (Auto) 5.1, Baso % (Auto) 0.6, Neut # (Auto) 5.0, Lymph # (Auto) 2.0, [place] # (Auto) 0.4, Eos # (Auto) 0.4, Baso # (Auto) 0.0, Chloride 110 H I & O for Last 24 hours: Intake & Output 05/05/24 05/06/24 05/07/24 05/08/24 23:59 23:59 23:59 23:59 Output Total 0 / 0 0 / 0 Balance 0 / 0 0 / 0 Weight 52.163 kg 53.841 kg Constitutional Constitutional: no acute distress, thin, chronically ill appearing and cooperative *Routine HEENT Exam Head: Present normocephalic Eye: Present EOMI and PERRL ENT: Present mucous membranes moist *Routine Neck Exam Neck: Present supple; Absent lymphadenopathy *Routine Respiratory Exam Respiratory: Present prolonged expiratory phase; Absent rhonchi, wheezes or crackles *Routine Cardiovascular Exam Cardiovascular: Present RRR *Routine Abdominal Exam Abdominal: Present soft and normoactive bowel sounds; Absent tenderness *Routine Rectal Exam Patient deferred: visual exam *Routine Exam Patient deferred: external exam *Routine Extremities Exam Extremities: Absent cyanosis, clubbing or edema Comments: Palpable pulses bilaterally posterior tibial *Routine Skin Exam Skin: Present intact and warm; Absent rash *Routine Neurological Exam Neurological: Present alert, oriented X3 and moving all extremities; Absent altered mental status Results Data Completed and Pending Labs on day of discharge: Labs from last 24 hours 05/08/24 05/07/24 05/07/24 06:33 11:19 09:00 WBC 7.9 7.7 RBC 4.41 4.58 Hgb 12.6 13.1 Hct 39.2 41.1 MCV 88.9 89.6 MCH 28.7 28.5 MCHC 32.3 31.8 RDW 15.4 15.1 Plt Count 186 194 MPV 8.9 8.7 Neut % (Auto) 63.4 56.2 Lymph % (Auto) 25.6 32.7 [place] % (Auto) 5.4 4.5 Eos % (Auto) 5.1 5.4 Baso % (Auto) 0.6 1.2 Neut # (Auto) 5.0 4.3 Lymph # (Auto) 2.0 2.5 [place] # (Auto) 0.4 0.3 Eos # (Auto) 0.4 0.4 Baso # (Auto) 0.0 0.1 Activated Clotting Time 310 H* Sodium 139 Potassium 3.9 Chloride 110 H 111 H Carbon Dioxide 19 L Anion Gap 12.9 BUN 13 Creatinine 0.90 Estimated Creat Clear 57 Estimated GFR 65 Est GFR ( Amer) 78 Glucose 83 Calcium 10.2 DS: Diagnosis Discharge Diagnosis (1) PAD (peripheral artery disease): Status: Chronic Code(s): I73.9 - Peripheral vascular disease, unspecified (2) Claudication: Status: Acute Code(s): I73.9 - Peripheral vascular disease, unspecified (3) Renal artery stenosis: Status: Acute Code(s): I70.1 - Atherosclerosis of renal artery (4) Abdominal aortic aneurysm (AAA): Status: Acute Code(s): I71.40 - Abdominal aortic aneurysm, without rupture, unspecified (5) HTN (hypertension): Status: Acute Code(s): I10 - Essential (primary) hypertension Qualifiers: Hypertension type: primary hypertension Qualified Code(s): I10 - Essential (primary) hypertension (6) HHD (hypertensive heart disease): Status: Chronic Code(s): I11.9 - Hypertensive heart disease without heart failure Qualifiers: Heart failure presence: without heart failure Qualified Code(s): I11.9 - Hypertensive heart disease without heart failure (7) CAD (coronary artery disease): Status: Chronic Code(s): I25.10 - Atherosclerotic heart disease of [place] coronary artery without angina pectoris Qualifiers: Associated angina: without angina Coronary Disease-Associated Artery/Lesion type: [place] artery [place] vs. transplanted heart: [place] heart Qualified Code(s): I25.10 - Atherosclerotic heart disease of [place] coronary artery without angina pectoris (8) Tobacco abuse: Status: Chronic Code(s): Z72.0 - Tobacco use (9) HLD (hyperlipidemia): Status: Chronic Code(s): E78.5 - Hyperlipidemia, unspecified Qualifiers: Hyperlipidemia type: mixed hyperlipidemia Qualified Code(s): E78.2 - Mixed hyperlipidemia Meds Home Medications and Allergies Home Medications ?Medication ?Instructions ?Recorded ?Confirmed ?Type albuterol sulfate 90 mcg/actuation 2 puff inhalation Q4HP PRN 10/03/17 05/07/24 History aerosol inhaler (ProAir HFA) Shortness Of Breath aspirin 81 mg tablet,delayed 81 mg PO DAILY #30 tabs 10/27/17 05/07/24 Rx release clopidogrel 75 mg tablet (Plavix) 75 mg PO DAILY #30 tabs 10/27/17 05/07/24 Rx levocetirizine 5 mg tablet (Xyzal) 5 mg PO DAILY 11/28/20 05/07/24 History ferrous sulfate 325 mg (65 mg 325 mg PO DAILY 07/16/21 05/07/24 History iron) tablet (Feosol) fluticasone propionate 50 2 spray intranasal DAILY 07/16/21 05/07/24 History mcg/actuation nasal spray,suspension valsartan 160 mg tablet 160 mg PO DAILY #90 tabs 02/24/23 05/07/24 Rx ergocalciferol (vitamin D2) 1,250 1,250 mcg PO WEEKLY 04/28/24 05/07/24 History mcg (50,000 unit) capsule folic acid 1 mg tablet 1 mg PO DAILY 04/28/24 05/07/24 History venlafaxine 150 mg 150 mg PO DAILY 04/28/24 05/07/24 History capsule,extended release 24 hr buspirone 5 mg tablet 5 mg PO BID 05/07/24 05/07/24 History lansoprazole 30 mg capsule,delayed 30 mg PO DAILY 05/07/24 05/07/24 History release nicotine 21 mg/24 hr daily 21 mg transdermal DAILY 05/07/24 05/07/24 History transdermal patch metoprolol tartrate 25 mg tablet 12.5 mg (1/2 x 25 mg) PO BID 30 05/08/24 05/07/24 Rx days #0 tabs New Prescriptions to Start Prescriptions: Allergies Allergy/AdvReac Type Severity Reaction Status Date / Time rivaroxaban [From Xarelto] AdvReac Mild bleeding Verified 05/07/24 09:09 with urination Discharge Plan Disposition Patient Disposition: Home, Self-Care Condition: Fair Follow up Plan Follow up with: Oleksandr Pittman MD [Staff Physician] - 05/20/24 2:45 pm (please call Friday, May 10 to schedule a follow up appointment with your primary care doctor! (:) Prescriptions/Medication Reconciliation: Continued clopidogrel [Plavix] 75 mg tablet 75 mg PO DAILY Qty: 30 5RF aspirin 81 mg tablet,delayed release (DR/EC) 81 mg PO DAILY Qty: 30 5RF albuterol sulfate [ProAir HFA] 90 mcg/actuation HFA aerosol inhaler 2 puff INHALATION Q4HP PRN (Reason: Shortness Of Breath) levocetirizine [Xyzal] 5 mg tablet 5 mg PO DAILY ferrous sulfate [Feosol] 325 mg (65 mg iron) tablet 325 mg PO DAILY fluticasone propionate 50 mcg/actuation spray,suspension 2 spray INTRANASAL DAILY Rx Instructions: administer into each nostril venlafaxine 150 mg capsule,extended release 24hr 150 mg PO DAILY Patient Comments: TAKE ONE (1) CAPSULE EVERY DAY BY ORAL ROUTE FOR 30 DAYS. folic acid 1 mg tablet 1 mg PO DAILY Patient Comments: TAKE ONE (1) TABLET EVERY DAY BY ORAL ROUTE. ergocalciferol (vitamin D2) 1,250 mcg (50,000 unit) capsule 1,250 mcg PO WEEKLY Patient Comments: TAKE ONE (1) CAPSULE EVERY WEEK BY ORAL ROUTE buspirone 5 mg tablet 5 mg PO BID Patient Comments: TAKE ONE (1) TABLET TWICE A DAY BY ORAL ROUTE DIRECTED, FOR BEGINING TAKE ONE (1) TABLET ONCE DAILY FOR THREE (3) DAYS. lansoprazole 30 mg capsule,delayed release(DR/EC) 30 mg PO DAILY Patient Comments: TAKE ONE (1) CAPSULE BY MOUTH EVERY DAY nicotine 21 mg/24 hr patch 24 hour 21 mg transdermal DAILY Patient Comments: APPLY ONE (1) PATCH EVERY DAY BY TRANSDERMAL ROUTE. Changed metoprolol tartrate 25 mg tablet 12.5 mg PO BID 30 Days Qty: 0 0RF Held valsartan 160 mg tablet 160 mg PO DAILY Qty: 90 1RF Hold Instructions: pending follow-up with cardiology, or resume if Systolic BP >140 Problem Reconciliation Problems Reviewed?: Yes Patient Discharge Instructions ACTIVITY: Continue current activity, Ambulate as tolerated and No heavy lifting DIET: continue same diet Stand Alone Forms: [facility] Work Release Patient Instructions: DI for Surgical Site Infection Print Language: M[place]ese Providers Primary Care Provider: Yadiel Luz Admit Provider: Laron Messer Attending Provider: Laron Messer
[2024-05-08 07:34] VITALS: BP 89/51; PULSE 86; RESP 16; TEMP 36.8; O2SAT 97
[2024-05-08] MEDS: VENLAFAXINE XR 75MG CAPSULE 150 MG PO (08:59)
[2024-05-08] MEDS: BUSPIRONE HCL 5 MG TABLET PO (08:59)
[2024-05-08] MEDS: METOPROLOL TARTRATE 25MG TABLET 12.5 MG PO (09:00)
[2024-05-08] MEDS: CLOPIDOGREL 75MG TAB 75 MG PO (09:06)
[2024-05-08] MEDS: ASPIRIN 81MG CHEWABLE TABLET 81 MG PO (09:45)
--- NOTE | 2024-05-10 14:15 | CARE MANAGER ---
Attempted to call patient to discuss recent discharge. Phone number in chart is not a working number.
== END 2024-05-08 10:10 | disposition home or self-care (01) ==
LOC: 2ND 11:57
PROVIDERS: Internal Medicine; Admitting Provider Internal Medicine Adolescent Medicine; PCP Student in an Organized Health Care Education/Training Program; Visit Provider Internal Medicine Adolescent Medicine
DX: I70.1 Atherosclerosis of renal artery (principal); I70.8 Atherosclerosis of other arteries; I70.223 Atherosclerosis of native arteries of extremities with rest pain, bilateral legs; F17.210 Nicotine dependence, cigarettes, uncomplicated; I15.0 Renovascular hypertension; I77.1 Stricture of artery; I25.10 Atherosclerotic heart disease of native coronary artery without angina pectoris; I11.9 Hypertensive heart disease without heart failure; E78.2 Mixed hyperlipidemia; I71.40 Abdominal aortic aneurysm, without rupture, unspecified; Z79.899 Other long term (current) drug therapy
CPT/HCPCS: 37221; 37236; 80048; 85025; 85347; 99152; 99153; C1725; C1769; C1876; C1887; C1894; C9765; G0378; J1200; J1644; J2250; J2720; J3010; Q9966

== ENCOUNTER 2024-11-19 07:43 | Outpatient (CLI) | payer OTHER, SELFPAY ==
[2024-11-19 07:59] LABS: Basophils # 0.1 K/mm3 (0-0.2); Basophils % 0.8 % (0.1-2.0); Eosinophils # 0.4 Kmm3 (0.0-0.4); Eosinophils % 4.8 % (0.1-12.0); Hematocrit 37.9 % (37.0-47.0); Hemoglobin 12.5 g/dL (12.2-16.2); Lymphocytes # 3.1 K/mm3 (0.7-4.5); Mean Corpuscular Hemoglobin 28.6 pg (27.0-31.2); Mean Corpuscular Volume 86.7 fl (81-99); Mean Platelet Volume 10.1 fl (7.4-10.4); Monocytes # 0.5 K/mm3 (0.1-1.0); Monocytes % 6.2 % (1.7-9.3); Neutrophils # 3.7 K/mm3 (1.8-7.8); Neutrophils % 47.9 % (37.0-80.0); Nucleated Red Blood Cells # 0 10^3/uL; Nucleated Red Blood Cells % 0 %; Platelet Count 228 K/mm3 (142-424); Red Blood Count 4.37 M/mm3 (4.20-5.40); Red Cell Distribution Width 14.1 % (11.5-17.5); White Blood Count 7.7 K/mm3 (4.8-10.8)
[2024-11-19 08:06] LABS: Albumin Level 4.3 g/dl (3.5-5.0); Chloride 111 mmol/L (98-107); Potassium 3.2 mmoL/L (3.5-5.1); Sodium 142 mmol/L (136-145)
[2024-11-19 08:08] LABS: Blood Urea Nitrogen 7 mg/dl (7-17); Estimated Glomerular Filt Rate 74 ml/min (>60); GFR (African American) 89 ML/MIN (>60)
[2024-11-19 08:09] LABS: Alanine Aminotransferase 18 U/L (12-78); Alkaline Phosphatase 97 U/L (38-126); Anion Gap 11.2 mEq/L (5-15); Aspartate Amino Transferase 34 U/L (14-36); Bilirubin,Indirect 0.4 mg/dL (0.0-0.9); Bilirubin,Total 0.4 mg/dl (0.2-1.3); Bilirubin,Unconjugated 0.4 mg/dL (0.0-1.1); Calcium 9.3 mg/dl (8.4-10.2); Carbon Dioxide 23 mmol/L (22.0-30.0); Chol/HDL Ratio 1.9 (1-3.5); Cholesterol 146 mg/dl (140-200); Glucose 80 mg/dl (74-100); HDL Cholesterol 75 mg/dl (40-60); Magnesium 1.5 mg/dl (1.6-2.3); Total Protein,Serum 7.5 g/dl (6.3-8.2); Triglycerides 89 mg/dl (30-150); VLDL Cholesterol 18 mg/dL (0-40)
[2024-11-19 08:21] LABS: Direct LDL Cholesterol 53.98 mg/dL (100-129)
[2024-11-19 08:40] LABS: Thyroid Stimulating Hormone 1.44 uIU/mL (0.465-4.68)
== END 2024-11-19 23:59 | disposition home or self-care (01) ==
LOC: LAB 07:44
PROVIDERS: PCP Student in an Organized Health Care Education/Training Program; Visit Provider Physician Assistant
DX: R53.83 Other fatigue (principal); I70.1 Atherosclerosis of renal artery; R06.02 Shortness of breath; I11.9 Hypertensive heart disease without heart failure; I25.10 Atherosclerotic heart disease of native coronary artery without angina pectoris; E78.2 Mixed hyperlipidemia; I73.9 Peripheral vascular disease, unspecified
CPT/HCPCS: 36415; 80048; 80061; 80076; 83735; 84439; 84443; 85025